=== PATIENT | male | born 1990 | race Caucasian/White ===

== ENCOUNTER 2022-08-05 13:43 | Outpatient (CLI) | payer BC, SELFPAY ==
[2022-08-13 09:38] LABS: Cystic Fibrosis, Allele 1 Negative; Cystic Fibrosis, Allele 2 Negative
== END 2022-08-05 13:44 | disposition home or self-care (01) ==
LOC: NFLDREF 13:43
PROVIDERS: PCP Nurse Practitioner Family; Visit Provider Registered Nurse
DX: Z13.71 Encounter for nonprocreative screening for genetic disease carrier status (principal)
CPT/HCPCS: 81220

== ENCOUNTER 2025-07-25 16:18 | Outpatient (CLI) | payer BC, SELFPAY | END 2025-07-25 16:19 | disposition home or self-care (01) | PROVIDERS: PCP Nurse Practitioner Family; Visit Provider Nurse Practitioner Family | DX: R05.9 Cough, unspecified (principal); R00.2 Palpitations | CPT/HCPCS: 80048; 83735; 84443; 85025 ==